=== PATIENT | male | born 1985 | race Caucasian/White ===

== ENCOUNTER 2020-09-03 11:49 | Emergency (ER) | payer MEDICAID, SELFPAY ==
--- NOTE | ~2020-09-03 | US_ITS ---
EXAMINATION: US ABDOMEN LIMITED CLINICAL INFORMATION: Right upper quadrant pain. COMPARISON: None TECHNIQUE: Real-time imaging of the right upper quadrant abdominal viscera. FINDINGS: PANCREAS: The visualized portions of the pancreatic head and body are unremarkable. LIVER: The liver is normal in size. The liver contour is normal. Mild increased hepatic parenchymal echogenicity, consistent with steatosis. Fatty sparing adjacent to the gallbladder fossa. No focal hepatic lesion. There is no intrahepatic biliary duct dilatation seen. GALLBLADDER: Normal. The gallbladder is physiologically distended without evidence of stones, sludge, polyps, wall thickening or pericholecystic fluid. COMMON BILE DUCT: Normal in caliber measuring 0.3 cm in diameter. RIGHT KIDNEY: Normal. No hydronephrosis. No renal calculi or focal parenchymal lesions. The kidney measures 10 cm in maximum dimension. FREE FLUID: None. US/US abdomen limited IMPRESSION: Mild hepatic steatosis. Fatty sparing adjacent to the gallbladder fossa. No hepatic parenchymal lesion or biliary ductal dilatation. No cholelithiasis, gallbladder wall thickening, or pericholecystic free fluid to suggest acute cholecystitis.
[2020-09-03 11:58] VITALS: BP 110/80; PULSE 105; RESP 16; TEMP 36.3; O2SAT 100; BMI 26.5
[2020-09-03 14:39] LABS: MANUAL DIFF FLAG NO
[2020-09-03 14:41] LABS: Basophils Percent Auto 0.4 % (0-2); Eosinophils Percent Auto 0.3 % (0-4); Hematocrit 44.3 % (42-52); Hemoglobin 14.3 g/dl (14.0-18.0); Imm Gran Abs Auto 0.03 X10*3/uL (0.00-0.03); Imm Gran Pct Auto 0.3 % (0.0-0.4); Lymphocytes Absolute Auto 1.2 X10*3/uL (1.2-4.9); Lymphocytes Percent Auto 10.9 % (20-40); Mean Corpuscular HGB Conc 32.3 g/dl (31.0-36.0); Mean Corpuscular Hemoglobin 29.6 pg (27.0-33.0); Mean Corpuscular Volume 91.7 fL (80-98); Mean Platelet Volume 9.5 fL (9.4-12.4); Monocytes Absolute Auto 0.5 X10*3/uL (0.1-1.2); Monocytes Percent Auto 4.9 % (2-11); Neutrophils Absolute Auto 8.9 X10*3/uL (2.0-8.3); Neutrophils Percent Auto 83.2 % (45-73); Platelet Count 246 X10*3/uL (160-400); Red Blood Count 4.83 X10*6/uL (4.60-5.80); Red Cell Distribution Width 13.2 % (11.0-16.0); White Blood Count 10.6 X10*3/uL (4.8-10.8)
[2020-09-03 15:08] LABS: Alanine Aminotransferase 28 U/L (0-40); Albumin Level 4.5 g/dL (3.5-5.0); Alkaline Phosphatase 62 U/L (39-117); Anion Gap 12 (12-20); Aspartate Amino Transferase 24 U/L (5-37); Bilirubin Direct 0.3 mg/dL (0.0-0.5); Bilirubin Total 0.9 mg/dL (0.0-1.0); Blood Urea Nitrogen 16 mg/dL (9-16); Calcium 9.6 mg/dL (8.4-10.2); Carbon Dioxide 31 mmol/L (22-29); Chloride 103 mmol/L (96-108); Creatinine Clr Calc Pharmacy 78.2; Estimated Glomerular Filt Rate > 60; Glucose Random 146 mg/dL (60-115); Lipase 17 U/L (8-78); Magnesium 2.1 mg/dL (1.6-2.6); Potassium 4.8 mmol/L (3.3-5.1); Sodium 141 mmol/L (135-145); Total Protein 7.4 g/dL (6.5-8.0)
[2020-09-03 15:12] LABS: Glucose Urine UA NEG (NEG); Leukocyte Esterase Urine NEG (NEG); Nitrite Urine NEG (NEG); PH 6.5 (5.0-8.0); Specific Gravity - Urine 1.025 (1.005-1.025); Urine Blood NEG (NEG); Urine Ketones NEG (NEG); Urine Protein NEG (NEG-TRACE)
[2020-09-03 15:17] LABS: Appearance Urine CLEAR; Color Urine YELLOW
[2020-09-03 15:34] LABS: Amphetamine Screen Urine Not Detected (Not Detect); Barbiturates, Urine Not Detected (Not Detect); Benzodiazepines Screen Urine Not Detected (Not Detect); Cannabinoid Screen Urine Not Detected (Not Detect); Cocaine Screen Urine POSITIVE (Not Detect); Opiate Screen Urine POSITIVE (Not Detect); Phencyclidine Screen Urine Not Detected (Not Detect)
--- NOTE | 2020-09-03 16:14 | ED.ABDPAIN ---
HPI - Abdominal Pain General Chief Complaint: Abdominal Pain Stated Complaint: abd pain Time Seen by Provider: 09/03/20 12:09 Source: patient Mode of arrival: ambulatory Limitations: no limitations History of Present Illness HPI narrative: Patient With history of substance abuse heroin and cocaine not IVDA comes here for pain in right upper quadrant for last few days no nausea no vomiting no diarrhea no history of any liver condition before patient non alcoholic. No fever or chills no shortness of breath no cough no urinary complaints. Moving bowels normally. Also patient complaining of bilateral leg swelling and diffuse pain without any significant pitting edema which is going on for last few months MD elicited complaint: abdominal pain Pertinent past history: none Onset (ago): day(s) Pain Consistency: constant Location: RUQ Severity: mild Quality: aching Radiation: none Migration to: no migration Exacerbating factors: nothing Relieving factors: nothing Related Data Previous Rx's Medication Instructions Recorded bisacodyl [Dulcolax (bisacodyl)] 10 mg PO DAILY PRN #30 tab 09/03/20 omeprazole 20 mg PO DAILY 42 Days #42 cap 09/03/20 Allergies Allergy/AdvReac Type Severity Reaction Status Date / Time aspirin Allergy Unknown Verified 01/30/15 00:00 ibuprofen [From MOTRIN] AdvReac Unknown GI UPSET Unverified 02/03/20 18:57 Review of Systems Review of Systems Constitutional : No Weight loss, No Fever, No Chills ENT/Mouth : No sore throat, No Rhinorrhea Eyes: No Eye Pain, No Swelling Cardiovascular : No Chest Pain, no palpitations Respiratory : No Cough, No Sputum, no shortness of breath Gastrointestinal : no Nausea, No Vomiting, No Diarrhea, + abdominal Pain, no black stools Genitourinary : No Dysuria, No Urinary Frequency Musculoskeletal : No joint pain, No Myalgias, No Joint Swelling Skin : No Skin Lesions, No rash Neuro : No Weakness, No Numbness, No Dizziness, No Headache Psych : No Anxiety/Panic, No Depression Heme/Lymph: No Bruising, No Lymphadenopathy Endocrine : No Polyuria, No Polydipsia All other systems reviewed and are negative Physical Exam Vital Signs: Vital Signs: Last Vital Signs Temp 98.0 F 09/03/20 16:15 Pulse 98 09/03/20 16:15 Resp 18 09/03/20 16:15 BP 143/72 H 09/03/20 16:15 Pulse Ox 99 09/03/20 16:15 Body Mass Index 26.5 Const: General: cooperative Nutritional Appearance: average body habitus Orientation/consciousness: oriented to person, oriented to place and oriented to time Limitations: no limitations HENMT: Head: Yes normal to inspection Mouth: Normal oral and palatal mucosa present Eyes: General: appearance normal, both eyes and all related structures Pupils: Equal, round and reactive pupils present EOM: EOMs intact bilaterally Neck: Neck: Yes normal visual inspection and Yes full ROM Thyroid: Thyroid normal Lymphatic: no lymphadenopathy noted Resp: Effort & Inspection: normal respiratory effort and able to speak in complete sentences Auscultation: clear to auscultation bilaterally Cardio: Palpation: normal PMI Rate: regular rate Rhythm: regular rhythm and abnormal rhythm Heart sounds: S1 normal heart sound present and S2 normal heart sound present GI: Inspection: Yes normal to inspection Palpation (GI): Soft to palpation and Tenderness to palpation present (GI) in the RUQ; Wan's sign negative and with no rebound tenderness Percussion: Yes normal to percussion Auscultation: normal bowel sounds Rectal Exam - Male: Yes deferred : General: Yes no CVA tenderness Back/Spine/Pelvis: Back: no CVA tenderness Neuro: General: oriented to person, oriented to place and oriented to time Cranial nerves: Yes CN's II-XII intact bilaterally and Yes Equal, round and reactive pupils present Cognition (Neuro): normal cognition Gait exam (Neuro): Normal gait present Motor exam (neuro): 5/5 motor strength present throughout Sensory Exam: Normal double simultaneous stimulation for sensation Extrem: General: Yes normal to inspection, Yes full ROM, No calf tenderness and Yes edema (Bilateral nonpitting edema ) Psych: Mental Status: mental status grossly normal MDM - Abdominal Pain MDM Narrative Medical decision making narrative: Patient has stable labs history of substance abuse ultrasound negative for any significant pathology pain likely from constipation pain is likely from constipation and GERD Lab Data Attestation: I reviewed the patient's lab results. Result diagrams: 09/03/20 14:32 09/03/20 14:32 Labs: Lab Results 09/03/20 09/03/20 09/03/20 Range/Units 14:32 14:32 14:32 WBC 10.6 (4.8-10.8) X10*3/uL RBC 4.83 (4.60-5.80) X10*6/uL Hgb 14.3 (14.0-18.0) g/dl Hct 44.3 (42-52) % MCV 91.7 (80-98) fL MCH 29.6 (27.0-33.0) pg MCHC 32.3 (31.0-36.0) g/dl RDW 13.2 (11.0-16.0) % Plt Count 246 (160-400) X10*3/uL MPV 9.5 (9.4-12.4) fL Immature Gran % (Auto) 0.3 (0.0-0.4) % Neut % (Auto) 83.2 H (45-73) % Lymph % (Auto) 10.9 L (20-40) % [place] % (Auto) 4.9 (2-11) % Eos % (Auto) 0.3 (0-4) % Baso % (Auto) 0.4 (0-2) % Lymph # (Auto) 1.2 (1.2-4.9) X10*3/uL [place] # (Auto) 0.5 (0.1-1.2) X10*3/uL Eos # (Auto) 0.0 (0.0-0.4) X10*3/uL Baso # (Auto) 0.0 (0.0-0.2) X10*3/uL Abs Immat Gran (auto) 0.03 (0.00-0.03) X10*3/uL Absolute Neuts (auto) 8.9 H (2.0-8.3) X10*3/uL Absolute Nucleated RBC 0.000 (0.0-0.012) X10*3/uL Nucleated RBC % (auto) 0.0 (0.0-0.2) /100WBC Hold Blue Top SEE NOTE Sodium 141 (135-145) mmol/L Potassium 4.8 (3.3-5.1) mmol/L Chloride 103 (96-108) mmol/L Carbon Dioxide 31 H (22-29) mmol/L Anion Gap 12 (12-20) BUN 16 (9-16) mg/dL Creatinine 1.05 (0.5-1.4) mg/dL Estim Creat Clear Calc 78.2 Estimated GFR > 60 Random Glucose 146 H (60-115) mg/dL Calcium 9.6 (8.4-10.2) mg/dL Magnesium 2.1 (1.6-2.6) mg/dL Total Bilirubin 0.9 (0.0-1.0) mg/dL Direct Bilirubin 0.3 (0.0-0.5) mg/dL AST 24 (5-37) U/L ALT 28 (0-40) U/L Alkaline Phosphatase 62 (39-117) U/L Total Protein 7.4 (6.5-8.0) g/dL Albumin 4.5 (3.5-5.0) g/dL Lipase 17 (8-78) U/L Urine Color Urine Appearance Urine pH (5.0-8.0) Ur Specific [place] (1.005-1.025) Urine Protein (NEG-TRACE) MG/DL Urine Glucose (UA) (NEG) MG/DL Urine Ketones (NEG) MG/DL Urine Blood (NEG) Urine Nitrite (NEG) Ur Leukocyte Esterase (NEG) Urine Opiates Screen (Not Detect) Ur Barbiturates Screen (Not Detect) Ur Phencyclidine Scrn (Not Detect) Ur Amphetamines Screen (Not Detect) U Benzodiazepines Scrn (Not Detect) Urine Cocaine Screen (Not Detect) U Marijuana (THC) Screen (Not Detect) 09/03/20 09/03/20 Range/Units 14:52 14:52 WBC (4.8-10.8) X10*3/uL RBC (4.60-5.80) X10*6/uL Hgb (14.0-18.0) g/dl Hct (42-52) % MCV (80-98) fL MCH (27.0-33.0) pg MCHC (31.0-36.0) g/dl RDW (11.0-16.0) % Plt Count (160-400) X10*3/uL MPV (9.4-12.4) fL Immature Gran % (Auto) (0.0-0.4) % Neut % (Auto) (45-73) % Lymph % (Auto) (20-40) % [place] % (Auto) (2-11) % Eos % (Auto) (0-4) % Baso % (Auto) (0-2) % Lymph # (Auto) (1.2-4.9) X10*3/uL [place] # (Auto) (0.1-1.2) X10*3/uL Eos # (Auto) (0.0-0.4) X10*3/uL Baso # (Auto) (0.0-0.2) X10*3/uL Abs Immat Gran (auto) (0.00-0.03) X10*3/uL Absolute Neuts (auto) (2.0-8.3) X10*3/uL Absolute Nucleated RBC (0.0-0.012) X10*3/uL Nucleated RBC % (auto) (0.0-0.2) /100WBC Hold Blue Top Sodium (135-145) mmol/L Potassium (3.3-5.1) mmol/L Chloride (96-108) mmol/L Carbon Dioxide (22-29) mmol/L Anion Gap (12-20) BUN (9-16) mg/dL Creatinine (0.5-1.4) mg/dL Estim Creat Clear Calc Estimated GFR Random Glucose (60-115) mg/dL Calcium (8.4-10.2) mg/dL Magnesium (1.6-2.6) mg/dL Total Bilirubin (0.0-1.0) mg/dL Direct Bilirubin (0.0-0.5) mg/dL AST (5-37) U/L ALT (0-40) U/L Alkaline Phosphatase (39-117) U/L Total Protein (6.5-8.0) g/dL Albumin (3.5-5.0) g/dL Lipase (8-78) U/L Urine Color YELLOW Urine Appearance CLEAR Urine pH 6.5 (5.0-8.0) Ur Specific [place] 1.025 (1.005-1.025) Urine Protein NEG (NEG-TRACE) MG/DL Urine Glucose (UA) NEG (NEG) MG/DL Urine Ketones NEG (NEG) MG/DL Urine Blood NEG (NEG) Urine Nitrite NEG (NEG) Ur Leukocyte Esterase NEG (NEG) Urine Opiates Screen POSITIVE H (Not Detect) Ur Barbiturates Screen Not Detected (Not Detect) Ur Phencyclidine Scrn Not Detected (Not Detect) Ur Amphetamines Screen Not Detected (Not Detect) U Benzodiazepines Scrn Not Detected (Not Detect) Urine Cocaine Screen POSITIVE H (Not Detect) U Marijuana (THC) Screen Not Detected (Not Detect) Imaging Data US - abdomen: Attestation: I personally reviewed and interpreted this imaging study as follows: Radiologist's impression: [address] [id number] ReportSigned Patient: Yaya CruzMR#: [id number]: 1985Acct:[id number]/Sex: 35 / MADM Date: 09/03/20Loc: HO.EDAttending Dr: Ordering Physician: Jean Dumas MD Date of Service: 09/03/20 Procedure(s): US abdomen limited Accession Number(s): [id number] cc: Jean Dumas MD~ EXAMINATION: US ABDOMEN LIMITED CLINICAL INFORMATION: Right upper quadrant pain. COMPARISON: None TECHNIQUE: Real-time imaging of the right upper quadrant abdominal viscera. FINDINGS: PANCREAS: The visualized portions of the pancreatic head and body are unremarkable. LIVER: The liver is normal in size. The liver contour is normal. Mild increased hepatic parenchymal echogenicity, consistent with steatosis. Fatty sparing adjacent to the gallbladder fossa. No focal hepatic lesion. There is no intrahepatic biliary duct dilatation seen. GALLBLADDER: Normal. The gallbladder is physiologically distended without evidence of stones, sludge, polyps, wall thickening or pericholecystic fluid. COMMON BILE DUCT: Normal in caliber measuring 0.3 cm in diameter. RIGHT KIDNEY: Normal. No hydronephrosis. No renal calculi or focal parenchymal lesions. The kidney measures 10 cm in maximum dimension. FREE FLUID: None. US/US abdomen limited IMPRESSION: Mild hepatic steatosis. Fatty sparing adjacent to the gallbladder fossa. No hepatic parenchymal lesion or biliary ductal dilatation. No cholelithiasis, gallbladder wall thickening, or pericholecystic free fluid to suggest acute cholecystitis. Discharge Plan Discharge Clinical Impression: Fatty liver, Active substance abuse Patient Disposition: Home, Self-Care Instructions: Non-Alcoholic Fatty Liver Disease (ED), Opioid Use Disorder (ED) Additional Instructions: Stop using drugs keep your legs elevated medication as advised Prescriptions: New omeprazole 20 mg capsule,delayed release(DR/EC) 20 mg PO DAILY 42 Days Qty: 42 RF: 0 bisacodyl [Dulcolax (bisacodyl)] 5 mg tablet,delayed release (DR/EC) 10 mg PO DAILY PRN (Reason: constipation) Qty: 30 RF: 0 Discharge Date/Time: 09/03/20 18:35 [facility] Past Medical History Medical History No known health problems Social History Social History Advance Directives: No Advance Directives Information Provided: Yes
[2020-09-03 16:15] VITALS: BP 143/72; PULSE 98; RESP 18; TEMP 36.7; O2SAT 99
[2020-09-03] MEDS: Omeprazole 40 MG CAPSULE.DR PO (18:27)
[2020-09-03] MEDS: traMADoL HCL 50 MG TABLET PO (18:27)
== END 2020-09-03 18:35 | disposition home or self-care (01) ==
PROVIDERS: Emergency Medicine; Emergency Provider Internal Medicine
DX: K76.0 Fatty (change of) liver, not elsewhere classified (principal); F11.10 Opioid abuse, uncomplicated; F14.10 Cocaine abuse, uncomplicated; R10.11 Right upper quadrant pain; M79.662 Pain in left lower leg; M79.661 Pain in right lower leg
CPT/HCPCS: 36415; 76705; 80048; 80076; 80307; 81003; 83690; 83735; 85025; 99284

== ENCOUNTER 2022-07-18 12:47 | Outpatient (REF) | payer MEDICAID, SELFPAY ==
--- NOTE | ~2022-07-18 | MR_ITS ---
EXAMINATION: MR LUMBAR SPINE WITHOUT CONTRAST CLINICAL INFORMATION: Chronic lower back pain, right leg pain and weakness COMPARISON: None TECHNIQUE: MRI of the lumbar spine was obtained using routine sequences without contrast. FINDINGS: Mild leftward curvature of the lower lumbar spine. No suspicious marrow signal or focal osseous lesion. No marrow edema The vertebral body heights are maintained. The intervertebral discs are of normal height and signal. The conus medullaris terminates at the level of L1. The distal spinal cord is normal in appearance. The cauda equina nerve roots appear normal. No significant abnormalities of the paraspinal musculature.. Limited evaluation of the intra-abdominal structures without significant abnormalities. The abdominal aorta is of normal contour and caliber. SPINAL LEVELS: T12-L1: No significant spinal canal or neural foraminal narrowing L1-L2: No significant spinal canal or neuroforaminal narrowing. L2-L3: No significant spinal canal or neuroforaminal narrowing. L3-L4: No significant spinal canal or neuroforaminal narrowing. L4-L5: No significant spinal canal or neuroforaminal narrowing. Mild facet arthropathy L5-S1: No significant spinal canal or neuroforaminal narrowing. Mild to moderate facet arthropathy. MR/MR lumbar spine wo con IMPRESSION: Mild to moderate lower lumbar facet arthropathy. Otherwise unremarkable examination. No significant spinal canal stenosis, neural foraminal narrowing, or evidence of nerve impingement.
== END 2022-07-18 12:48 | disposition home or self-care (01) ==
LOC: HO.MRI 12:47
PROVIDERS: PCP Registered Nurse; Visit Provider Registered Nurse
DX: M54.41 Lumbago with sciatica, right side (principal)
CPT/HCPCS: 72148

== ENCOUNTER 2023-04-01 10:14 | Outpatient (REF) | payer MEDICAID, SELFPAY ==
--- NOTE | ~2023-04-01 | XR_ITS ---
EXAMINATION: XR LUMBAR SPINE CLINICAL INFORMATION: Back pain COMPARISON: None available. TECHNIQUE: Three views of the lumbosacral spine. FINDINGS: The vertebral bodies and posterior elements are normal. The disc spaces are preserved and the vertebral alignment is normal. The paraspinal soft tissues are normal. The sacrum and sacroiliac joints image normally. XR/XR lumbar spine 2-3V IMPRESSION: Unremarkable plain radiographs of the lumbosacral spine.
--- NOTE | ~2023-04-01 | XR_ITS ---
EXAMINATION: XR THORACIC SPINE CLINICAL INFORMATION: Back pain COMPARISON: None available. TECHNIQUE: Frontal and lateral views of the dorsal spine were acquired. FINDINGS: Frontal and lateral views of the dorsal spine show vertebral body height is maintained. No bone lesions are detected. Paraspinal soft tissues are normal. XR/XR thoracic spine 2V IMPRESSION: Normal dorsal spine.
== END 2023-04-01 10:15 | disposition home or self-care (01) ==
LOC: HO.HHCX 10:14
PROVIDERS: Visit Provider Nurse Practitioner Family
DX: M54.9 Dorsalgia, unspecified (principal)
CPT/HCPCS: 72070; 72100